=== PATIENT | male | born 1985 | race Caucasian/White ===

== ENCOUNTER 2016-07-12 11:36 | Emergency (ER) | payer OTHER ==
[~2016-07-12 11:36] MED LIST: KETOPROFEN PO
== END 2016-07-12 12:47 | disposition home or self-care (01) ==
LOC: CED 11:36
DX: T40.1X1A Poisoning by heroin, accidental (unintentional), initial encounter (principal); F17.200 Nicotine dependence, unspecified, uncomplicated
CPT/HCPCS: 96360; 99284

== ENCOUNTER 2017-01-03 17:37 | Emergency (ER) | payer OTHER ==
[~2017-01-03] VITALS: Ht 182.9 cm; Wt 90.7 kg
== END 2017-01-03 19:45 | disposition home or self-care (01) ==
LOC: CED 17:37
DX: F11.10 Opioid abuse, uncomplicated (principal); F17.200 Nicotine dependence, unspecified, uncomplicated
CPT/HCPCS: 99284